=== PATIENT | female | born 1940 | race Caucasian/White ===

== ENCOUNTER → 2018-01-03 | Outpatient (CLI) | payer MEDICARE ==
[~2018-01-03] MED LIST: CONTRAST GIVEN. MC
[2018-01-03 09:12] LABS: GFR 48.4
[2018-01-03 09:12] LABS: CREATININE 1.1 mg/dL (0.6-1.0)
[2018-01-03] MEDS: IOHEXOL 300 MG/ML 100ML VIAL. IV (09:54)
== END | disposition home or self-care (01) ==
LOC: CT 08:30
DX: I71.4 Abdominal aortic aneurysm, without rupture (principal); K42.9 Umbilical hernia without obstruction or gangrene; R31.9 Hematuria, unspecified
CPT/HCPCS: 36415; 74178; 82565; Q9967

== ENCOUNTER → 2018-10-28 | Outpatient (CLI) | payer MEDICARE ==
[2017-05-01 11:00] VITALS: BP 134/41
[~2018-10-28] MED LIST changes: +ALBU2.5V8 IH; +ASPI325T8 PO; +CALC-178 PO; +CARV25TA2 PO; -CONTRAST GIVEN. MC; +CRESTOR40 MG PO; +DOCU-109 PO; +FAMO40TA4 PO; +FLUT1DIS IH; +FURO40TA4 PO; +HYDR-2761 PO; +LEVO50TA5 PO; +LORA10TA3 PO; +POTA10TA11 PO; +POTA20TA84 PO
--- NOTE | 2018-10-28 14:12 | CARD ---
MR#: [id number] Date of Study: 10/28/2018 Ordering Physician: BREANNA GARCIA, Referring Physician: BREANNA GARCIA, Tech: Joslyn Brown [facility] APPROVED REPORT EXAM: Two-dimensional and M-mode echocardiogram with Doppler and color Doppler. Other Information Quality : AverageHR: 68bpm Rhythm : NSR INDICATION CAD 2D DIMENSIONS RVDd3.0 (2.9-3.5cm)Left Atrium(2D)4.2 (1.6-4.0cm) IVSd1.2 (0.7-1.1cm)Aortic Root(2D)2.9 (2.0-3.7cm) LVDd4.7 (3.9-5.9cm)LVOT Diameter2.0 (1.8-2.4cm) PWd0.9 (0.7-1.1cm)LVDs3.4 (2.5-4.0cm) FS (%) 26.9 %SV53.7 ml LVEF(%)52.4 (>50%) Aortic Valve AoV Peak Cedrick.130.7cm/sAoV VTI29.6cm AO Peak GR.6.8mmHgLVOT Peak Cedrick.82.4cm/s AO Mean GR.3mmHgAVA (VMAX)1.89cm2 [place] (VTI)1.90cm2 Mitral Valve MV E Cuyfwfnw719.1cm/sMV DECEL CAQB184sx MV A Junnuxbw11.5cm/sE/A Ratio1.2 MV A [id number] Pulmonary Valve PV Peak Tikooucu18.0cm/s Tricuspid Valve TR P. Sqqnbjil158eg/sRAP PKMQWDGX3kgXm TR Peak Gr.95cmOgRRSW48zkLy LEFT VENTRICLE The left ventricle is normal size. Proximal septal thickening is noted. Left ventricle systolic funct ion is normal. The Ejection Fraction is 50- 55%. There is normal LV segmental wall motion. Transmitra l Doppler flow pattern is Grade II-pseudonormal filling dynamics. RIGHT VENTRICLE The right ventricle is normal size. There is normal right ventricular wall thickness. The right ventr icular systolic function is normal. ATRIA The left atrium is mildly dilated. The right atrium size is normal. The interatrial septum is intact with no evidence for an atrial septal defect or patent foramen ovale as noted on 2-D or Doppler imagi ng. AORTIC VALVE The aortic valve is normal in structure and function. The aortic valve is trileaflet. Doppler and Col or Flow revealed no significant aortic regurgitation. There is no significant aortic valvular stenosi s. MITRAL VALVE The mitral valve is thickened but opens well. There is no evidence of mitral valve prolapse. There is no mitral valve stenosis. Doppler and Color-flow revealed trace to mild mitral regurgitation. TRICUSPID VALVE The tricuspid valve is normal in structure and function. Doppler and Color Flow revealed trace tricus pid regurgitation. The PA pressure was estimated at 41 mmHg. There is no tricuspid valve prolapse or vegetation. There is no tricuspid valve stenosis. PULMONIC VALVE The pulmonic valve is not well visualized. GREAT VESSELS The aortic root is normal in size. The ascending aorta is normal in size. The IVC is normal in size a nd collapses >50% with inspiration. PERICARDIAL EFFUSION There is no evidence of significant pericardial effusion. Critical Notification Critical Value: No <Conclusion> Left ventricle systolic function is normal. The Ejection Fraction is 50- 55%. There is normal LV segmental wall motion. The left atrium is mildly dilated. Trace to mild mitral regurgitation. Trace tricuspid regurgitation. The PA pressure was estimated at 41 mmHg. There is no evidence of significant pericardial effusion. Signed by : Jarrett Matta, Electronically Approved : 10/28/2018 14:11:16
--- NOTE | 2018-10-28 16:33 | RAD ---
MR#: [id number] Date of Study: 10/28/2018 Ordering Physician: BREANNA GARCIA, Referring Physician: BREANNA GARCIA, Tech: Sho Chaudhari, GAVINO, RVT, RTR APPROVED REPORT Patient Location: OUT-PATIENT Laterality:Bilateral Indications Carotid artery disease; History of Left Endarterectomy 1 1/2 years ago Doppler Spectral Velocity Analysis Right Left pCCA 120/24 cm/spCCA 119/20 cm/s mCCA 77/14 cm/smCCA 84/16 cm/s dCCA 109/22 cm/sdCCA 59/17 cm/s Bulb 98/17 cm/sBulb 71/14 cm/s ECA 258/ cm/sECA 113/ cm/s pICA 205/52 cm/spICA 326/50 cm/s Mary 218/36 cm/smICA 197/40 cm/s dICA 115/36 cm/sdICA 105/33 cm/s Vert. 173/ cm/sVert. 50/ cm/s ICA/CCA 1.82ICA/CCA 2.74 Findings Grayscale images of the bilateral common carotid, external and internal carotid vessels reveals signi ficant diffuse athero-'s chronic plaque. On the right there is greater than 50% stenosis on mahan scale images in the common carotid artery. Ve locities are suggestive of 0 to less than 50% stenosis. The right internal carotid artery demonstrate s a greater than 70% stenosis. ICA to CCA ratios are elevated at 2.7. The right external carotid patria ry also has a greater than 50% stenosis by velocity criteria. The left common carotid artery on mahan scale images demonstrates a 50% obstructive lesion. By velocit y criteria there is overall 0 to less than 50% stenosis. The proximal internal carotid artery by [facility] criteria demonstrates greater than 70% stenosis. The ICA to CCA ratios is elevated at 4.2. The bilateral vertebral velocities are antegrade and suggest mild disease. Critical Notification Critical Value: Yes <Conclusion> 1. High-grade bilateral internal carotid artery disease. Significant diffuse atherosclerotic plaque n oted in the carotid arterial system. 2. Consider CT angiogram for further evaluation. Signed by : Jj Krishnan, Electronically Approved : 10/28/2018 16:32:52
== END | disposition home or self-care (01) ==
LOC: US 11:47
PROVIDERS: ATTEND Internal Medicine Cardiovascular Disease
DX: I34.0 Nonrheumatic mitral (valve) insufficiency (principal); I65.23 Occlusion and stenosis of bilateral carotid arteries; I77.9 Disorder of arteries and arterioles, unspecified; I25.5 Ischemic cardiomyopathy; I25.10 Atherosclerotic heart disease of native coronary artery without angina pectoris
CPT/HCPCS: 93306; 93880

== ENCOUNTER 2019-02-07 05:54 | Inpatient (IN) | payer MEDICARE ==
[~2019-02-07] VITALS: Ht 160 cm; Wt 67.7 kg
[~2019-02-07 05:54] MED LIST changes: +CHOL10003 PO
[2019-02-07] MEDS ORDERED: HEPARIN SODIUM 5,000 UNIT in IV RINGERS,LACTATED 500ML 500 ML IRR ONE (06:00)
[2019-02-07] MEDS ORDERED: ROPIVacaine 0.5% PF 20 ML VIAL. ONE (06:59)
[2019-02-07 07:00] LABS: BASO # 0.1 x10^3/uL (0.0-0.2); BASO % 1 % (0-3); EOS # 0.1 x10^3/uL (0.0-0.7); EOS % 1 % (0-3); HEMATOCRIT 39.4 % (36.0-47.0); HEMOGLOBIN 13.4 g/dL (12.0-15.5); LYMPH # 1.7 x10^3/uL (1.0-4.8); LYMPH % 21 % (24-48); MEAN CORPUSCULAR HEMOGLOBIN 31 pg (25-35); MEAN CORPUSCULAR HGB CONC 34 g/dL (31-37); MEAN CORPUSCULAR VOLUME 92 fL (79-100); MONO # 0.6 x10^3/uL (0.0-1.1); MONO % 8 % (0-9); NEUT # 5.3 x10^3/uL (1.8-7.7); NEUT % 69 % (31-73); PLATELET COUNT 178 x10^3/uL (140-400); RED BLOOD COUNT 4.31 x10^6/uL (3.50-5.40); RED CELL DISTRIBUTION WIDTH 13.4 % (11.5-14.5); WHITE BLOOD COUNT 7.8 x10^3/uL (4.0-11.0)
[2019-02-07] MEDS ORDERED: MORPHINE SULFATE 2 MG/ML VIAL. IV PRN ×2 (07:00→08:00)
[2019-02-07] MEDS ORDERED: PROCHLORPERAZINE 10 MG/2 ML VIAL. IV PRN ×2 (07:00→08:00)
[2019-02-07] MEDS ORDERED: fentaNYL PF VIAL 100 MCG/2 ML VIAL IV PRN ×2 (07:00)
[2019-02-07] MEDS ORDERED: IV RINGERS,LACTATED 1000ML 1,000 ML IV SCH (07:00)
[2019-02-07] MEDS ORDERED: ONDANSETRON PF 4 MG/2 ML VIAL. IV PRN ×2 (07:00→08:00)
[2019-02-07] MEDS ORDERED: HYDROmorphone 2 MG/ML VIAL IV PRN (07:00)
[2019-02-07 07:01] LABS: CREATININE 1.1 mg/dL (0.6-1.0); GFR 48.3; POTASSIUM 3.5 mmol/L (3.5-5.1)
[2019-02-07] MEDS ORDERED: LIDOCAINE 1% PF 2 ML VIAL. ONE (07:02)
[2019-02-07] MEDS ORDERED: MIDAZOLAM HCL/PF 2 MG/2 ML VIAL. ONE (07:02)
[2019-02-07] MEDS ORDERED: fentaNYL PF VIAL 100 MCG/2 ML VIAL ONE ×3 (07:06→10:03)
[2019-02-07] MEDS ORDERED: LIDOCAINE 1% 20 ML VIAL. ONE (07:07)
[2019-02-07] MEDS ORDERED: PROTAMINE 50 MG/5 ML VIAL. IV ONE ×2 (07:08→09:17)
[2019-02-07] MEDS ORDERED: SURGICEL FIBRILLAR 1X2 EACH. ONE (07:08)
[2019-02-07] MEDS ORDERED: PHENYLEPHRINE in 0.9% NACL PF 1 MG/10 ML SYRINGE. IV ONE (07:09)
[2019-02-07 07:17] LABS: PROTHROMBIN TIME PATIENT 12.2 SEC (11.7-14.0)
[2019-02-07] MEDS ORDERED: ALBUTEROL SULFATE 2.5 MG/3 ML NEBU. ONE (07:26)
[2019-02-07] MEDS ORDERED: ALBUTEROL SULFATE 2.5 MG/3 ML NEBU. NEB ONE (07:45)
[2019-02-07] MEDS ORDERED: 0.9 % SODIUM CHLORIDE 10 ML DISP.SYRIN. IV PRN (08:00)
[2019-02-07] MEDS ORDERED: HYDROcodone/APAP 5/325MG 1 TAB TABLET PO PRN ×2 (08:00)
[2019-02-07] MEDS ORDERED: hydrALAZINE 20 MG/ML VIAL. IVP PRN (08:00)
[2019-02-07] MEDS: IV RINGERS,LACTATED 1000ML 1,000 ML IV SCH ×2 (08:00→18:00)
[2019-02-07] MEDS ORDERED: LABETALOL 20 MG/4 ML DISP.SYRIN. IVP PRN (08:00)
[2019-02-07] MEDS ORDERED: ACETAMINOPHEN 325 MG TABLET. PO PRN (08:00)
[2019-02-07] MEDS ORDERED: HEPARIN for IV BOLUS 10,000 UNIT/10 ML VIAL. ONE (08:08)
[2019-02-07] MEDS: LEVOTHYROXINE 50 MCG TABLET PO SCH (09:00)
[2019-02-07] MEDS ORDERED: ALBUTEROL SULFATE 2.5 MG/3 ML NEBU. NEB SCH (09:00)
--- NOTE | 2019-02-07 09:38 | PDOC ---
BRIEF OPERATIVE NOTE Date: Feb 07, 2019 Pre-Op Diagnosis Right carotid stenosis Post-Op Diagnosis same Procedure Performed Right carotid endarterectomy Surgeon Dr. Cleary Soldering Technician Gregory Jeffery, DOMINGUEZ Anesthesia Type: Regional Blood Loss 50cc Specimens Obtained discarded Findings greater than 70% stenosis Complications none Operative Note see dictated note GREGORY JEFFERY CPR AMBULANCE DRIVER Feb 07, 2019 09:37
--- NOTE | 2019-02-07 09:39 | DISCH ---
DISCHARGE INSTRUCTIONS Condition on Discharge Condition on Discharge: Stable Activity After Discharge Activity Instructions for Disc: Activity as tolerated Weight Bearing Status after Di: As tolerated Diet after Discharge Diet after Discharge: Cardiac Wound Incision Care Wound/Incision Care: Ice to area for comfort, May get incision wet Other wound/incision instructi: may shower starting 02/09/2019 keep drain site covered with bandaid for 2-3 Contacting the after DC Call your doctor for: Concerns you may have Follow-Up Follow up with: Dr. Cleary 02/23/2019 1015 GREGORY JEFFERY APRN Feb 07, 2019 09:39
--- NOTE | 2019-02-07 10:05 | OP ---
DATE OF SURGERY: 02/07/2019 SURGEON: Darlin Cleary MD MARKETING REPORTING ANALYST: Marzena Noel, nurse practitioner. PREOPERATIVE DIAGNOSIS: Right carotid artery severe, greater than 80% stenosis, which is asymptomatic. POSTOPERATIVE DIAGNOSIS: Severe right internal carotid artery stenosis with greater than 80% stenosis by atherosclerotic disease in the proximal and mid internal carotid artery. OPERATION PERFORMED: Right carotid endarterectomy using the eversion endarterectomy technique. ANESTHESIA USED: Right neck cervical block with monitored sedation. BLOOD LOSS: 50 mL. INDICATIONS: The patient is a 78-year-old female with a history of carotid arterial disease. She is remotely in the past undergone a left carotid endarterectomy. She has been found to have severe, greater than 80% stenosis of the right internal carotid artery by duplex scan and CT angiogram. She has been asymptomatic with no stroke symptoms and no strokes in the recent past. I recommend a right carotid endarterectomy to prevent future strokes. Informed consent was obtained from the patient including the risks of bleeding, infection, intraoperative or postoperative stroke, recurrent carotid arterial disease in the future, requiring further intervention and possible nerve damage. DETAILS OF THE OPERATION: The patient was brought to the operating room and placed on table in supine position. She received a right neck cervical block by the anesthesiologist. Her neck was positioned appropriately by normal fashion to expose the right neck and chest. Her right neck and chest was prepped and draped in normal sterile fashion. We began by pinching the skin along her neck and ensured that there was a good block. She had no pain. I made a longitudinal incision just anterior to the right sternocleidomastoid muscle. I dissected down to the subcutaneous tissue and divided the platysma with electrocautery. We continued dissection down to the sternocleidomastoid muscle. Crossing venous branches were clipped and divided. We dissected out the sternocleidomastoid muscle and mobilized it laterally to expose the internal jugular vein. The jugular vein was dissected out on the medial aspect and there were several small venous branches, which were ligated with 3-0 silk sutures and divided in a more large crossing facial branch proximally, which was ligated with 2-0 silk ties, clips and divided. We were able to mobilize the jugular vein laterally and exposed the common carotid artery and the base of the wound. The common carotid artery was dissected out proximally. We then heparinized with 6000 units of heparin. We were able to dissect out the proximal common carotid artery where it was soft placed an umbilical tape loosely with Rumel tourniquet at this location. We continued dissection up to the carotid bulb. The carotid bulb was fairly high. We dissected out the tissue over the carotid bulb including identifying and preserving the hypoglossal nerve. We were able to dissect out the external carotid artery, placed a vessel loop around it. We then clamped the proximal common carotid artery and external carotid artery. She tolerated test clamping. She was able to squeeze her left hand and answer questions appropriately. We then continued dissection of the internal carotid artery, high up under the hypoglossal nerve. It had plaque within the proximal and mid-section, but the distal section was nice and soft and nondiseased and we placed a straight spring bulldog across the distal internal carotid artery. She continued to remain neurologically intact. We then transected the internal carotid artery in angled fashion at the bulb. We spatulated the medial aspect of the internal carotid artery and the anterior wall of the common carotid artery. There was dense calcification and plaque within the internal carotid artery, which was well over 80% stenotic at the origin and proximal segment. We performed an eversion endarterectomy of the internal carotid artery. This plaque extended through the mid-section of the internal carotid artery all the way up to the more distal location where the plaque was then removed and there was no further significant plaque. All pieces of debris were removed. The end of the endarterectomized area was widely patent. We irrigated with heparinized saline and there was no further plaque. We removed all debris from the artery. We then performed endarterectomy of the common carotid artery. We also performed an eversion endarterectomy of the external carotid artery, which had a long plaque, which were removed nicely and then we performed endarterectomy of the common carotid artery down to just above the clamp, the plaque was transected. There was no significant residual plaque and the lumen was widely patent. We removed all pieces of debris off the endarterectomized vessel. We then performed an anastomosis between the open internal carotid artery and the open common carotid artery with running 6-0 Prolene suture. Prior to finishing this anastomosis, we backbled the internal carotid artery. We backbled the external carotid artery and then we removed the clamp off the common carotid artery and there was pulsatile inflow. We irrigated the open vessel with heparinized saline and finished the anastomosis. We removed the clamp initially off the common carotid artery and external carotid artery. There was bleeding from the anterior wall of the anastomosis just in the proximal segment, which we oversewed with 6-0 Prolene suture. We then after several heartbeats removed the clamp off the internal carotid artery and restored blood flow. She remained neurologically intact, squeezing her left hand and answering questions. We irrigated with copious amounts of saline. We left a MAURA flat drain within the wound through a separate lower neck incision. She did have oozing from several areas within the wound bed. We controlled this with electrocautery and clips. I did give her 20 mg of protamine to reverse some of her anticoagulation. The anastomosis in artery was very dry. She has a strong palpable pulse in the distal internal carotid artery. We ensured good hemostasis, we left fibular around the vessels and the anastomosis. We left the drain within the wound. We closed the platysma and subcutaneous tissue layer with running 2-0 Vicryl suture and closed the skin with running 4-0 Vicryl subcuticular suture. Dermabond was left on the incision and a drain sponge. She was awake at the end of the case, speaking and answering questions. Good strength in all 4 extremities. She tolerated the surgery with no immediate complications. Marzena Bert was scrubbed throughout the entire length of the case. DARLIN CLEARY MD DR: KIKI/katlyn JOB#: [id number] / [id number]
[2019-02-07 11:45] VITALS: BP 160/70
[2019-02-07] MEDS: BUDESONIDE 0.5 MG/2 ML NEBU. NEB SCH ×2 (12:43→19:47)
[2019-02-07] MEDS: CHOLECALCIFEROL (VITAMIN D3) 1,000 UNIT TABLET PO SCH (12:51)
[2019-02-07] MEDS: CETIRIZINE HCL 10 MG TABLET. PO SCH (12:51)
[2019-02-07] MEDS: POTASSIUM CHLORIDE 20 MEQ TABLET.ER. PO SCH (12:51)
[2019-02-07] MEDS: DOCUSATE SODIUM 100 MG CAPSULE. PO SCH ×2 (12:51→21:17)
[2019-02-07] MEDS: CARVEDILOL 12.5 MG TABLET. PO SCH ×2 (12:51→19:02)
[2019-02-07] MEDS: ASPIRIN 325 MG TABLET PO SCH (12:51)
[2019-02-07] MEDS: FUROSEMIDE 40 MG TABLET. PO SCH (12:52)
[2019-02-07] MEDS: ACETAMINOPHEN 325 MG TABLET. PO SCH ×2 (12:52→21:16)
[2019-02-07 15:00] VITALS: BP 107/50
[2019-02-07] MEDS: ALBUTEROL SULFATE 2.5 MG/3 ML NEBU. NEB SCH ×2 (16:01→19:47)
[2019-02-07 19:20] VITALS: BP 107/39
[2019-02-07] MEDS ORDERED: ATORVASTATIN CALCIUM 40 MG TABLET. PO SCH (21:00)
[2019-02-07] MEDS ORDERED: FAMOTIDINE 20 MG TABLET. PO SCH (21:00)
[2019-02-07 23:00] VITALS: BP 109/51
[2019-02-08] MEDS: HYDROcodone/APAP 5/325MG 1 TAB TABLET PO PRN ×2 (02:55→07:50)
[2019-02-08 03:39] VITALS: BP 106/51
[2019-02-08] MEDS: IV RINGERS,LACTATED 1000ML 1,000 ML IV SCH (04:00)
[2019-02-08] MEDS: LEVOTHYROXINE 50 MCG TABLET PO SCH (05:58)
[2019-02-08] MEDS: ACETAMINOPHEN 325 MG TABLET. PO SCH (06:00)
[2019-02-08] MEDS: BUDESONIDE 0.5 MG/2 ML NEBU. NEB SCH (07:03)
[2019-02-08] MEDS: ALBUTEROL SULFATE 2.5 MG/3 ML NEBU. NEB SCH ×2 (07:03→11:00)
[2019-02-08 07:29] VITALS: BP 117/56
--- NOTE | 2019-02-08 07:46 | NUR ---
PT RECEIVED HYDROCODONE WITH ACETAMINOPHEN.
[2019-02-08] MEDS: POTASSIUM CHLORIDE 20 MEQ TABLET.ER. PO SCH (08:00)
--- NOTE | 2019-02-08 08:34 | PDOC ---
Provider Note Provider Note Vascular S: Patient seen and examined in room. Patient complains of right neck incision pain. O: Awake and alert Vital signs stable, afebrile Right neck incision dry and intact, well approximated. Trachea midline. Mild ecchymosis and swelling. Time Analysis Clerk equal, speech is clear. A/P: Right carotid stenosis Postoperative day 1 right carotid endarterectomy, doing well. Patient does have some complaints of discomfort. Recommend patient ambulate in halls. If continues to do well with discharge later today. Discharge instructions given to patient. Follow-up as scheduled with Dr. Cleary. GREGORY JEFFERY APRN Feb 08, 2019 08:34
--- NOTE | 2019-02-08 08:40 | PDOC3 ---
Discharge Summary Date of Admission: Feb 07, 2019 Date of Discharge: Feb 08, 2019 Follow-Up: Other (2 weeks, as scheduled) Admitting Diagnosis comment: Right carotid stenosis Brief Hospital Course Ms. Lozano is a 78 old female who presented with right carotid stenosis. Patient admitted following right carotid endarterectomy. Postoperative day 1 patient progressing as expected, mild complaints of incisional pain. Patient tolerating diet. Able to void without difficulty. Recommend patient ambulate in halls and continues to do well with discharge to home. CONDITION AT DISCHARGE: Stable Discharge Medications Current Medications Ondansetron HCl (Zofran) 4 mg PRN Q6HRS PRN IV NAUSEA/VOMITING; Start 02/07/19 at 07:00; Stop 02/07/19 at 20:00; Status DC Fentanyl Citrate (Fentanyl 2ml Vial) 25 mcg PRN Q5MIN PRN IV MILD PAIN 1-3 Last administered on 02/07/19at 11:01; Start 02/07/19 at 07:00; Stop 02/07/19 at 20:00; Status DC Fentanyl Citrate (Fentanyl 2ml Vial) 50 mcg PRN Q5MIN PRN IV MODERATE TO SEVERE PAIN Last administered on 02/07/19at 10:08; Start 02/07/19 at 07:00; Stop 02/07/19 at 20:00; Status DC Morphine Sulfate (Morphine Sulfate) 1 mg PRN Q10MIN PRN IV SEVERE PAIN 7-10; Start 02/07/19 at 07:00; Stop 02/07/19 at 20:00; Status DC Ringer's Solution 1,000 ml @ 30 mls/hr Q24H IV Last administered on 02/07/19at 06:58; Start 02/07/19 at 07:00; Stop 02/07/19 at 18:59; Status DC Hydromorphone HCl (Dilaudid) 0.5 mg PRN Q10MIN PRN IV SEV PAIN, Second choice; Start 02/07/19 at 07:00; Stop 02/07/19 at 20:00; Status DC Prochlorperazine Edisylate (Compazine) 5 mg PACU PRN PRN IV NAUSEA, MRX1; Start 02/07/19 at 07:00; Stop 02/07/19 at 20:00; Status DC Heparin Sodium (Porcine) 5000 unit/Ringer's Solution 505 ml @ 505 mls/hr 1X ONCE IRR Last administered on 02/07/19at 08:24; Start 02/07/19 at 06:00; Stop 02/07/19 at 06:59; Status DC Cefazolin Sodium 1 gm/Sodium Chloride 500 ml @ 500 mls/hr 1X ONCE IRR Last administered on 02/07/19at 08:24; Start 02/07/19 at 06:00; Stop 02/07/19 at 06:59; Status DC Cefazolin Sodium/ Dextrose 50 ml @ 100 mls/hr 1X ONCE IV ; Start 02/07/19 at 06:00; Stop 02/07/19 at 06:29; Status DC Ropivacaine (Naropin 0.5%) 20 ml STK-MED ONCE .ROUTE ; Start 02/07/19 at 06:59; Stop 02/07/19 at 06:59; Status DC Midazolam HCl (Versed) 2 mg STK-MED ONCE .ROUTE ; Start 02/07/19 at 07:02; Stop 02/07/19 at 07:03; Status DC Lidocaine HCl (Xylocaine-Mpf 1% 2ml Vial) 2 ml STK-MED ONCE .ROUTE ; Start 02/07/19 at 07:02; Stop 02/07/19 at 07:03; Status DC Nicardipine HCl (Cardene) 25 mg STK-MED ONCE IV ; Start 02/07/19 at 07:05; Stop 02/07/19 at 07:06; Status DC Nicardipine HCl (Cardene) 25 mg STK-MED ONCE IV ; Start 02/07/19 at 07:06; Stop 02/07/19 at 07:06; Status DC Fentanyl Citrate (Fentanyl 2ml Vial) 100 mcg STK-MED ONCE .ROUTE ; Start 02/07/19 at 07:06; Stop 02/07/19 at 07:06; Status DC Lidocaine HCl 20 ml STK-MED ONCE .ROUTE Last administered on 02/07/19at 09:34; Start 02/07/19 at 07:07; Stop 02/07/19 at 07:08; Status DC Cellulose (Surgicel Fibrillar 1x2) 1 each STK-MED ONCE .ROUTE Last administered on 02/07/19at 09:14; Start 02/07/19 at 07:08; Stop 02/07/19 at 07:08; Status DC Protamine Sulfate (Protamine) 50 mg STK-MED ONCE IV ; Start 02/07/19 at 07:08; Stop 02/07/19 at 07:08; Status DC Phenylephrine HCl (PHENYLEPHRINE in 0.9% NACL PF) 1 mg STK-MED ONCE IV ; Start 02/07/19 at 07:09; Stop 02/07/19 at 07:09; Status DC Albuterol Sulfate (Ventolin Neb Soln) 2.5 mg STK-MED ONCE .ROUTE ; Start 02/07/19 at 07:26; Stop 02/07/19 at 07:27; Status DC Albuterol Sulfate (Ventolin Neb Soln) 2.5 mg 1X ONCE NEB Last administered on 02/07/19at 12:43; Start 02/07/19 at 07:45; Stop 02/07/19 at 07:46; Status DC Albuterol Sulfate (Ventolin Neb Soln) 2.5 mg BID NEB ; Start 02/07/19 at 09:00; Status Cancel Aspirin (Faraz Aspirin) 325 mg DAILY PO Last administered on 02/07/19at 12:52; Start 02/07/19 at 09:00 Vitamin D (Vitamin D3) 1,000 unit DAILY PO Last administered on 02/07/19 12:52; Start 02/07/19 at 09:00 Docusate Sodium (Colace) 100 mg BID PO Last administered on 02/07/19at 21:19; Start 02/07/19 at 09:00 Furosemide (Lasix) 40 mg DAILY PO Last administered on 02/07/19 12:52; Start 02/07/19 at 09:00 Acetaminophen/ Hydrocodone Bitart (Lortab 5/325) 0.5 tab PRN Q6HRS PRN PO PAIN; Start 02/07/19 at 08:00 Levothyroxine Sodium (Synthroid) 50 mcg DAILY06 PO Last administered on 02/08/19at 05:58; Start 02/07/19 at 09:00 Carvedilol (Coreg) 25 mg BIDWMEALS PO Last administered on 02/07/19at 19:02; Start 02/07/19 at 08:00 Famotidine (Pepcid) 20 mg QHS PO Last administered on 02/07/19at 21:19; Start 02/07/19 at 21:00 Albuterol Sulfate (Ventolin Neb Soln) 2.5 mg RTQID NEB Last administered on 02/08/19at 07:03; Start 02/07/19 at 12:00 Cetirizine HCl (ZyrTEC) 10 mg DAILY PO Last administered on 02/07/19at 12:52; Start 02/07/19 at 09:00 Potassium Chloride (Klor-Con) 20 meq DAILYWBKFT PO Last administered on 02/07/19at 12:52; Start 02/07/19 at 08:00 Atorvastatin Calcium (Lipitor) 80 mg QHS PO Last administered on 02/07/19at 21:19; Start 02/07/19 at 21:00 Labetalol HCl (Normodyne Iv Push) 5 mg PRN Q2HR PRN IVP SBP > 160, 1st CHOICE; Start 02/07/19 at 08:00 Hydralazine HCl (Apresoline Inj) 5 mg PRN Q2HRS PRN IVP SBP > 160, 2nd CHOICE; Start 02/07/19 at 08:00 Sodium Chloride (Normal Saline Flush) 3 ml QSHIFT PRN IV AFTER MEDS AND BLOOD DRAWS; Start 02/07/19 at 08:00 Ringer's Solution 1,000 ml @ 100 mls/hr Q10H IV ; Start 02/07/19 at 08:00 Morphine Sulfate (Morphine Sulfate) 2 mg PRN Q1HR PRN IV PAIN; Start 02/07/19 at 08:00 Acetaminophen/ Hydrocodone Bitart (Lortab 5/325) 1 tab PRN Q4HRS PRN PO MILD PAIN 1-3; Start 02/07/19 at 08:00 Acetaminophen/ Hydrocodone Bitart (Lortab 5/325) 2 tab PRN Q4HRS PRN PO MODERATE PAIN, SEVERE PAIN Last administered on 02/08/19at 07:50; Start 02/07/19 at 08:00 Acetaminophen (Tylenol) 650 mg PRN Q6HRS PRN PO Headaches, Temp > 101.5F; Start 02/07/19 at 08:00 Acetaminophen (Tylenol) 650 mg Q8HRS PO Last administered on 02/07/19at 21:19; Start 02/07/19 at 14:00 Ondansetron HCl (Zofran) 4 mg PRN Q6HRS PRN IV NAUESA, 1ST CHOICE; Start 02/07/19 at 08:00 Prochlorperazine Edisylate (Compazine) 5 mg PRN Q6HRS PRN IV N/V, 2nd Choice, MR X1; Start 02/07/19 at 08:00 Heparin Sodium (Porcine) (Heparin Sodium) 10,000 unit STK-MED ONCE .ROUTE ; Start 02/07/19 at 08:08; Stop 02/07/19 at 08:08; Status DC Budesonide (Pulmicort) 0.5 mg RTBID NEB Last administered on 02/08/19at 07:03; Start 02/07/19 at 12:00 Protamine Sulfate (Protamine) 50 mg STK-MED ONCE IV ; Start 02/07/19 at 09:17; Stop 02/07/19 at 09:18; Status DC Fentanyl Citrate (Fentanyl 2ml Vial) 100 mcg STK-MED ONCE .ROUTE ; Start 02/07/19 at 09:19; Stop 02/07/19 at 09:19; Status DC Fentanyl Citrate (Fentanyl 2ml Vial) 100 mcg STK-MED ONCE .ROUTE ; Start 02/07/19 at 10:03; Stop 02/07/19 at 10:03; Status DC Active Scripts Active Reported Vitamin D3 (Cholecalciferol (Vitamin D3)) 1,000 Unit Tablet 1 Tab PO DAILY Crestor (Rosuvastatin Calcium) 40 Mg Tablet 1 Tab PO QHS Colace (Docusate Sodium) 100 Mg Capsule 1 Cap PO BID K-Tab ER (Potassium Chloride) 20 Meq Tablet.er 20 Meq PO DAILY Carvedilol 25 Mg Tablet 1 Tab PO BID Loratadine 10 Mg Tablet 1 Tab PO DAILY Aspirin 325 Mg Tablet 1 Tab PO DAILY Advair 100-50 Diskus (Fluticasone/Salmeterol) 1 Each Disk.w.dev 1 Puff IH BID Furosemide 40 Mg Tablet 40 Mg PO DAILY Hydrocodone-Apap 5-325 (Hydrocodone Bit/Acetaminophen) 1 Each Tablet 0.5 Tab PO PRN Q6HRS PRN Famotidine 40 Mg Tablet 40 Mg PO BID Levothyroxine Sodium 50 Mcg Tablet 50 Mcg PO DAILY Proair Hfa (Albuterol Sulfate) 8.5 Gm Hfa.aer.ad 1 Puff IH BID Vital Signs Vital Signs Date Time Temp Pulse Resp B/P (MAP) Pulse Ox O2 Delivery O2 Flow Rate FiO2 02/08/19 07:50 98 Nasal Cannula 1.0 02/08/19 07:29 97.9 57 20 117/56 (76) 97.9 Labs Laboratory Tests Test 02/07/19 06:25 White Blood Count 7.8 x10^3/uL (4.0-11.0) Red Blood Count 4.31 x10^6/uL (3.50-5.40) Hemoglobin 13.4 g/dL (12.0-15.5) Hematocrit 39.4 % (36.0-47.0) Mean Corpuscular Volume 92 fL (79-100) Mean Corpuscular Hemoglobin 31 pg (25-35) Mean Corpuscular Hemoglobin Concent 34 g/dL (31-37) Red Cell Distribution Width 13.4 % (11.5-14.5) Platelet Count 178 x10^3/uL (140-400) Neutrophils (%) (Auto) 69 % (31-73) Lymphocytes (%) (Auto) 21 % (24-48) Monocytes (%) (Auto) 8 % (0-9) Eosinophils (%) (Auto) 1 % (0-3) Basophils (%) (Auto) 1 % (0-3) Neutrophils # (Auto) 5.3 x10^3/uL (1.8-7.7) Lymphocytes # (Auto) 1.7 x10^3/uL (1.0-4.8) Monocytes # (Auto) 0.6 x10^3/uL (0.0-1.1) Eosinophils # (Auto) 0.1 x10^3/uL (0.0-0.7) Basophils # (Auto) 0.1 x10^3/uL (0.0-0.2) Prothrombin Time 12.2 SEC (11.7-14.0) Prothromb Time International Ratio 0.9 (0.8-1.1) Sodium Level 141 mmol/L (136-145) Potassium Level 3.5 mmol/L (3.5-5.1) Chloride Level 102 mmol/L (98-107) Carbon Dioxide Level 31 mmol/L (21-32) Anion Gap 8 (6-14) Blood Urea Nitrogen 14 mg/dL (7-20) Creatinine 1.1 mg/dL (0.6-1.0) Estimated GFR (Cockcroft-Gault) 48.3 Glucose Level 126 mg/dL (70-99) Calcium Level 9.0 mg/dL (8.5-10.1) Allergies Allergies Coded Allergies Type Severity Reaction Last Updated Verified No Known Drug Allergies 02/07/19 No Disposition/Orders: D/C to Home Patient Instructions Continue medications per reconciliation, along with pain prescription as needed. Follow up as scheduled. Follow Discharge Instructions as ordered. GRGEORY JEFFERY BURIAL AGENT Feb 08, 2019 08:40
[2019-02-08] MEDS: ASPIRIN 325 MG TABLET PO SCH (09:03)
[2019-02-08] MEDS: DOCUSATE SODIUM 100 MG CAPSULE. PO SCH (09:03)
[2019-02-08] MEDS: FUROSEMIDE 40 MG TABLET. PO SCH (09:03)
[2019-02-08] MEDS: CETIRIZINE HCL 10 MG TABLET. PO SCH (09:03)
[2019-02-08] MEDS: CHOLECALCIFEROL (VITAMIN D3) 1,000 UNIT TABLET PO SCH (09:03)
[2019-02-08] MEDS: CARVEDILOL 12.5 MG TABLET. PO SCH (09:05)
--- NOTE | 2019-02-08 09:12 | NUR ---
SS following for discharge planning. SS reviewed pt chart. Pt is from home. No discharge needs noted at this time. Discharge order on the chart for home with self care.
--- NOTE | 2019-02-08 09:44 | NUR ---
PTS POTASSIUM WOULD NOT SCAN AND SAVE HAD TO MANUALLY ADMINISTER ON COMPUTER.
[2019-02-08 10:36] VITALS: BP 116/56
--- NOTE | 2019-02-08 13:55 | NUR ---
PT LEFT AT APPROX 1230 WITH BROTHER PRESENT AT THE TIME OF DISCHARGE. PT GIVEN SCRIPT TO TAKE HOME WITH FOLLOW UP INSTRUCTIONS, APPT INFORMATION AND AFTERCARE INFORMATION. PT STATES UNDERSTANDING.
== END 2019-02-08 13:30 | disposition home or self-care (01) | DRG 39 ==
LOC: OPSVCIP 05:54 → 2 NORTH 11:22
PROVIDERS: ADMIT Surgery Vascular Surgery; ATTEND Surgery Vascular Surgery
PROC: 03CK0ZZ Extirpation of Matter from Right Internal Carotid Artery, Open Approach (ICD-10-PCS; 2019-02-07)
PROC: 03CM0ZZ Extirpation of Matter from Right External Carotid Artery, Open Approach (ICD-10-PCS; 2019-02-07)
PROC: 03CH0ZZ Extirpation of Matter from Right Common Carotid Artery, Open Approach (ICD-10-PCS; principal; 2019-02-07 07:30)
DX: I65.23 Occlusion and stenosis of bilateral carotid arteries (principal); I25.10 Atherosclerotic heart disease of native coronary artery without angina pectoris; I10 Essential (primary) hypertension; E78.5 Hyperlipidemia, unspecified; I73.9 Peripheral vascular disease, unspecified; Z95.1 Presence of aortocoronary bypass graft; Z79.899 Other long term (current) drug therapy; Z90.49 Acquired absence of other specified parts of digestive tract; Z82.49 Family history of ischemic heart disease and other diseases of the circulatory system; Z90.710 Acquired absence of both cervix and uterus; Z79.82 Long term (current) use of aspirin
CPT/HCPCS: 36415; 80048; 85025; 85610; 94640; 94760; J0690; J0696; J1644; J2250; J2370; J2795; J3010; J7040; J7120; J7613; J7626; G0378

== ENCOUNTER → 2019-11-07 | Outpatient (CLI) | payer MEDICARE ==
--- NOTE | 2019-11-07 12:26 | RAD ---
MR#: [id number] Date of Study: 11/07/2019 Ordering Physician: BREANNA GARCIA, Referring Physician: BREANNA GARCIA, Tech: JOHN Estrada, RDMS, RTR APPROVED REPORT Patient Location: OUT-PATIENT Laterality:Bilateral Indications follow up yearly Doppler Spectral Velocity Analysis Right Left pCCA 120/24 cm/spCCA 53/14 cm/s mCCA 98/23 cm/smCCA 74/18 cm/s dCCA 113/21 cm/sdCCA 77/20 cm/s pICA 92/25 cm/spICA 391/108 cm/s Mary 113/30 cm/smICA 193/39 cm/s dICA 93/36 cm/sdICA 95/26 cm/s Vert. 140/ cm/sVert. 26/ cm/s ICA/CCA 0.94ICA/CCA 7.38 Findings Grayscale images of the right internal carotid artery, external carotid artery and common carotid art robert demonstrate mild luminal irregularities. Spectral waveforms and color Doppler in the internal ca rotid vessels demonstrate 0 to less than 50% stenosis. Probable moderate disease in the external car otid vessels. Antegrade vertebral velocities are noted. Normal ICA to CCA ratios. On the left there is likely a greater than 70% stenosis involving the proximal internal carotid arter y with to and fro flow noted in the left vertebral artery. Elevated ICA to CCA ratios of 5.1 are not ed. Peak systolic velocities in the left internal carotid artery are 391 cm/s. Critical Notification Critical Value: Yes Physician Notified <Conclusion> 1. High-grade stenosis involving the left internal carotid artery. 2. Review of CT angiography performed in 2019 revealed no known prior moderate to high-grade left arrington bclavian and left carotid disease. Signed by : Jj Krishnan, Electronically Approved : 11/07/2019 12:26:21
== END | disposition home or self-care (01) ==
LOC: US 10:39
PROVIDERS: ATTEND Internal Medicine Cardiovascular Disease
DX: I65.22 Occlusion and stenosis of left carotid artery (principal)
CPT/HCPCS: 93880

== ENCOUNTER 2021-06-05 08:49 | Inpatient (IN) | payer MEDICARE ==
[~2021-06-05] VITALS: Ht 160 cm; Wt 70.5 kg
[2021-06-05] MEDS ORDERED: methylPREDNISolone SOD SUCC PF 125 MG/2 ML VIAL. IV ONE (09:00)
--- NOTE | 2021-06-05 09:02 | ED.ADGEN ---
Past Medical History Smoking Status: Former Smoker General Adult EDM: Chief Complaint: SHORTNESS OF BREATH HPI: HPI: Patient is a 81-year-old female who arrives via EMS reporting to shortness of air as well as a cough. Patient states she has been having problems breathing for quite some time however she woke this morning and noticed that she had considerable difficulty with breathing. Patient states she is a former smoker and has never been diagnosed with COPD however she had breathing issues for quite some time which require inhalers at home. Patient states despite this she has not had any chest pain or known fevers. Upon bilingual secretary arrival they did assess the patient and found her to be in the mid 80s on room air. The patient does report to being vaccinated against coronavirus and has not had any known sick contacts. She is awake, alert and in obvious respiratory distress. Review of Systems: Review of Systems: Constitutional: Denies fever or chills. [] Eyes: Denies change in visual acuity. [] HENT: Denies nasal congestion or sore throat. [] Respiratory: Reports cough with shortness of air. [] Cardiovascular: Denies chest pain or edema. [] GI: Denies abdominal pain, nausea, vomiting, bloody stools or diarrhea. [] : Denies dysuria. [] Musculoskeletal: Denies back pain or joint pain. [] Integument: Denies rash. [] Neurologic: Denies headache, focal weakness or sensory changes. [] Endocrine: Denies polyuria or polydipsia. [] Lymphatic: Denies swollen glands. [] Psychiatric: Denies depression or anxiety. [] Current Medications: Current Medications Medications (Trade) Dose Ordered Sig/Viraj Start Time Stop Time Status Last Admin Dose Admin Methylprednisolone Sodium Succinate (SOLU-Medrol 125MG VIAL) 125 mg 1X ONCE 06/05/21 09:00 06/05/21 09:01 DC 06/05/21 09:20 125 MG Ondansetron HCl (Zofran) 4 mg PRN Q8HRS PRN 06/05/21 11:00 06/06/21 10:59 Allergies: Allergies: Allergies Coded Allergies Type Severity Reaction Last Updated Verified No Known Drug Allergies 06/05/21 No Physical Exam: PE: Constitutional: Patient is in obvious respiratory distress. She is otherwise well-nourished and well kept in her appearance. HENT: Normocephalic, atraumatic, bilateral external ears normal, oropharynx moist, no oral exudates, nose normal. [] Eyes: PERRLA, EOMI, conjunctiva normal, no discharge. [] Neck: Normal range of motion, no tenderness, supple, no stridor. [] Cardiovascular:Heart rate regular rhythm, no murmur [] Lungs & Thorax: Mild respiratory distress with diminished bases with expiratory wheezes. [] Abdomen: Bowel sounds normal, soft, no tenderness, no masses, no pulsatile masses. [] Skin: Warm, dry, no erythema, no rash. [] Back: No tenderness, no CVA tenderness. [] Extremities: No tenderness, no cyanosis, no clubbing, ROM intact, no edema. [] Neurologic: Alert and oriented X 3, normal motor function, normal sensory function, no focal deficits noted. [] Psychologic: Affect normal, judgement normal, mood normal. [] Current Patient Data: Labs: Laboratory Tests Test 06/05/21 09:20 06/05/21 09:23 White Blood Count 5.9 x10^3/uL (4.0-11.0) Red Blood Count 5.34 x10^6/uL (3.50-5.40) Hemoglobin 16.9 g/dL (12.0-15.5) H Hematocrit 52.6 % (36.0-47.0) H Mean Corpuscular Volume 99 fL (79-100) Mean Corpuscular Hemoglobin 32 pg (25-35) Mean Corpuscular Hemoglobin Concent 32 g/dL (31-37) Red Cell Distribution Width 15.1 % (11.5-14.5) H Platelet Count 112 x10^3/uL (140-400) L Neutrophils (%) (Auto) 77 % (31-73) H Lymphocytes (%) (Auto) 14 % (24-48) L Monocytes (%) (Auto) 8 % (0-9) Eosinophils (%) (Auto) 1 % (0-3) Basophils (%) (Auto) 1 % (0-3) Neutrophils # (Auto) 4.5 x10^3/uL (1.8-7.7) Lymphocytes # (Auto) 0.8 x10^3/uL (1.0-4.8) L Monocytes # (Auto) 0.5 x10^3/uL (0.0-1.1) Eosinophils # (Auto) 0.0 x10^3/uL (0.0-0.7) Basophils # (Auto) 0.0 x10^3/uL (0.0-0.2) Sodium Level 141 mmol/L (136-145) Potassium Level 3.5 mmol/L (3.5-5.1) Chloride Level 98 mmol/L (98-107) Carbon Dioxide Level 33 mmol/L (21-32) H Anion Gap 10 (6-14) Blood Urea Nitrogen 14 mg/dL (7-20) Creatinine 1.6 mg/dL (0.6-1.0) H Estimated GFR (Cockcroft-Gault) 31.1 BUN/Creatinine Ratio 9 (6-20) Glucose Level 114 mg/dL (70-99) H Calcium Level 8.4 mg/dL (8.5-10.1) L Total Bilirubin 0.7 mg/dL (0.2-1.0) Aspartate Amino Transferase (AST) 32 U/L (15-37) Alanine Aminotransferase (ALT) 29 U/L (14-59) Alkaline Phosphatase 75 U/L (46-116) Troponin I High Sensitivity 27 ng/L (4-50) Total Protein 6.7 g/dL (6.4-8.2) Albumin 3.1 g/dL (3.4-5.0) L Albumin/Globulin Ratio 0.9 (1.0-1.7) L Influenza Type A Antigen Negative (NEGATIVE) Influenza Type B Antigen Negative (NEGATIVE) SARS-CoV-2 Antigen (Rapid) Negative (NEGATIVE) Laboratory Tests 06/05/21 09:20 Laboratory Tests 06/05/21 09:20 Vital Signs: Vital Signs Date Time Temp Pulse Resp B/P (MAP) Pulse Ox O2 Delivery O2 Flow Rate FiO2 06/05/21 10:29 56 21 178/70 (106) 97 Nasal Cannula 3.0 06/05/21 08:58 98.2 98.2 EKG: EKG: [] EKG was obtained at 9:12 AM and reveals a sinus rhythm with a ventricular of 61 bpm. There is nonspecific ST/T wave abnormalities in the anterior lateral leads which may denote ischemia versus left ventricular strain. There does appear to be artifact in the EKG and the tracing is suboptimal. There is no STEMI otherwise. Heart Score: C/O Chest Pain: No Risk Factors: Risk Factors: DM, Current or recent (<one month) smoker, HTN, HLP, family history of CAD, obesity. Risk Scores: Score 0 - 3: 2.5% MACE over next 6 weeks - Discharge Home Score 4 - 6: 20.3% MACE over next 6 weeks - Admit for Clinical Observation Score 7 - 10: 72.7% MACE over next 6 weeks - Early Invasive Strategies Radiology/Procedures: Radiology/Procedures: [][facility] [address] [place] [address] IMAGING REPORT Signed PATIENT: YURI GUTIERREZ ACCOUNT: [id number] : 1940 LOCATION: ER AGE: 81 SEX: F EXAM STATUS: PRE ER ORD. PHYSICIAN: MADELINE ALVARADO DO REASON: soa PROCEDURE: PORTABLE CHEST 1V XR CHEST 1V 06/05/2021 9:22 AM INDICATION: Shortness of air COMPARISON: None available TECHNIQUE: Portable frontal view of the chest is provided. FINDINGS: The cardiomediastinal silhouette is within normal limits. Mild pulmonary vascular congestion.. Median sternotomy changes are present. There are no significant pleural effusions. No pneumothorax. No suspicious osseous abnormality. IMPRESSION: Mild pulmonary vascular congestion as may be seen with congestive heart failure. Electronically signed by: Margaux Garcia MD (06/05/2021 10:34 AM) [id number] DICTATED and SIGNED BY: MARGAUX GARCIA MD DATE: 06/05/21 [id number] Course & Med Decision Making: Course & Med Decision Making Pertinent Labs and Imaging studies reviewed. (See chart for details) [] Dragon Disclaimer: Dragon Disclaimer: This electronic medical record was generated, in whole or in part, using a voice recognition dictation system. Departure Departure Impression: Primary Impression: COPD (chronic obstructive pulmonary disease) Additional Impressions: Person under investigation for COVID-19 Respiratory failure Disposition: ADMITTED INPATIENT Admitting Physician: HIMS Condition: STABLE Referrals: SUSAN GIRON MD (PCP) Problem Qualifiers MADELINE ALVARADO DO Jun 05, 2021 09:02
--- NOTE | 2021-06-05 09:29 | EKG ---
[facility] [address] [place] [address] Test Date: 2021-06-05 Test Time: 09:12:40 Pat Name: YURI GUTIERREZ Department: Room: Gender: F Optical Assistant: : 1940 Requested By: MADELINE ALVARADO Order Number: [id number] Reading MD: Oj Ramirez Measurements Intervals Stollings Rate: 61 P: 49 ID: [id number] QRS: 58 QRSD: 90 T: 230 QT: 388 QTc: 392 Interpretive Statements SINUS RHYTHM ST & T ABNORMALITY, CONSIDER ANTEROLATERAL ISCHEMIA OR LEFT VENTRICULAR STRAIN INFERIOR ISCHEMIA OR LEFT VENTRICULAR STRAIN ABNORMAL ECG Electronically Signed On 06-06-2021 15:40:48 CORK INSULATOR HELPER by Oj Ramirez
[2021-06-05 09:37] LABS: BASO % 1 % (0-3); EOS % 1 % (0-3); HEMATOCRIT 52.6 % (36.0-47.0); HEMOGLOBIN 16.9 g/dL (12.0-15.5); LYMPH # 0.8 x10^3/uL (1.0-4.8); LYMPH % 14 % (24-48); MEAN CORPUSCULAR HEMOGLOBIN 32 pg (25-35); MEAN CORPUSCULAR HGB CONC 32 g/dL (31-37); MEAN CORPUSCULAR VOLUME 99 fL (79-100); MONO # 0.5 x10^3/uL (0.0-1.1); MONO % 8 % (0-9); NEUT # 4.5 x10^3/uL (1.8-7.7); NEUT % 77 % (31-73); PLATELET COUNT 112 x10^3/uL (140-400); RED BLOOD COUNT 5.34 x10^6/uL (3.50-5.40); RED CELL DISTRIBUTION WIDTH 15.1 % (11.5-14.5); WHITE BLOOD COUNT 5.9 x10^3/uL (4.0-11.0)
[2021-06-05 09:52] LABS: INFLUENZA A PATIENT NEGATIVE (NEGATIVE); INFLUENZA B PATIENT NEGATIVE (NEGATIVE)
[2021-06-05 10:05] LABS: CALCIUM 8.4 mg/dL (8.5-10.1); CREATININE 1.6 mg/dL (0.6-1.0); GFR 31.1; POTASSIUM 3.5 mmol/L (3.5-5.1)
[2021-06-05 10:07] LABS: ALBUMIN 3.1 g/dL (3.4-5.0); ALBUMIN/GLOBULIN RATIO 0.9 (1.0-1.7); TOTAL BILIRUBIN 0.7 mg/dL (0.2-1.0); TOTAL PROTEIN 6.7 g/dL (6.4-8.2)
--- NOTE | 2021-06-05 10:37 | RAD ---
XR CHEST 1V 06/05/2021 9:22 AM INDICATION: Shortness of air COMPARISON: None available TECHNIQUE: Portable frontal view of the chest is provided. FINDINGS: The cardiomediastinal silhouette is within normal limits. Mild pulmonary vascular congestion.. Median sternotomy changes are present. There are no significant pleural effusions. No pneumothorax. No suspicious osseous abnormality. IMPRESSION: Mild pulmonary vascular congestion as may be seen with congestive heart failure. Electronically signed by: Christi Cohen MD (06/05/2021 10:34 AM) [id number]
[2021-06-05] MEDS ORDERED: ONDANSETRON PF 4 MG/2 ML VIAL. IVP PRN (11:00)
--- NOTE | 2021-06-05 13:45 | NUR ---
PATIENT ARRIVED ON THE UNIT PER BED ALERT AND VERBALLY RESPONSIVE, ASSESSMENT COMPLETED AT THIS TIME, COMFPRT MEASURES GIVEN AND CARDIAC DIET ORDERED D/T PATIENT INFORMING THIS PORTER BATH THAT SHE HAD NOT RECEIVED ANY LUNCH AT THIS TIME. VITALS ARE FOLLOWS; 97.6,135/62, 60, 95% ON 2 LITERS N/C.
[2021-06-05 15:00] VITALS: BP 123/53
[2021-06-05] MEDS ORDERED: CYCL5TAB PO (16:08)
[2021-06-05 19:00] VITALS: BP 125/59
[2021-06-05] MEDS ORDERED: LISI5TAB15 PO (20:59)
--- NOTE | 2021-06-05 21:10 | NUR ---
Not documented by day shift Addendum: 06/05/21 at 2111 by LORRIE MINA LPN LPN Amended: Links added.
[2021-06-05] MEDS ORDERED: CYCLOBENZAPRINE 10 MG TABLET. PO PRN (21:15)
[2021-06-05] MEDS: ATORVASTATIN CALCIUM 40 MG TABLET. PO SCH (22:14)
[2021-06-05] MEDS: DOCUSATE SODIUM 100 MG CAPSULE. PO SCH (22:14)
[2021-06-05 23:03] VITALS: BP 129/48
[2021-06-06] MEDS: HYDROcodone/APAP 5/325MG 1 TAB TABLET PO PRN ×2 (02:45→21:17)
[2021-06-06 03:08] VITALS: BP 131/51
[2021-06-06] MEDS: LEVOTHYROXINE 50 MCG TABLET PO SCH (05:56)
[2021-06-06 07:00] VITALS: BP 127/62
[2021-06-06] MEDS: predniSONE 20 MG TABLET PO SCH (09:53)
[2021-06-06] MEDS: FUROSEMIDE 40 MG TABLET. PO SCH (09:53)
[2021-06-06] MEDS: POTASSIUM CHLORIDE 20 MEQ TABLET.ER. PO SCH (09:53)
[2021-06-06] MEDS: ASPIRIN 325 MG TABLET PO SCH (09:53)
[2021-06-06] MEDS: DOCUSATE SODIUM 100 MG CAPSULE. PO SCH ×2 (09:54→21:16)
[2021-06-06] MEDS: CARVEDILOL 12.5 MG TABLET. PO SCH ×2 (09:54→17:49)
[2021-06-06] MEDS: LISINOPRIL 5 MG TABLET. PO SCH (09:54)
[2021-06-06] MEDS: FAMOTIDINE 20 MG TABLET. PO SCH (09:54)
[2021-06-06] MEDS: ALBUTEROL SULFATE 8GM INHALER. INH SCH ×2 (09:55→20:00)
[2021-06-06] MEDS: FLUTICASONE/VILANTEROL 100/25 INHALER. INH SCH (09:55)
--- NOTE | 2021-06-06 09:56 | PDOC1 ---
History and Physical Date of Service: DOS: DATE: 06/06/21 TIME: 09:56 Chief Complaint: Chief Complain: SOB History of Present Illness: HPI: Patient is a 81-year-old female who arrived overnight EMS reporting shortness of air as well as a cough. Patient states she has been having problems breathing for quite some time however she woke yesterday morning and noticed that she had considerable difficulty with breathing. Patient states she is a former smoker and has never been diagnosed with COPD however she had breathing issues for quite some time which require inhalers at home. Patient states despite this she has not had any chest pain or known fevers. Upon radiographer angiogram arrival they did assess the patient and found her to be in the mid 80s on room air. The patient does report to being vaccinated against coronavirus and has not had any known sick contacts. She is awake, alert and in obvious respiratory distress. Past Medical/Surgical History: PMH/PSH: HPLD, Hypothyroid Allergies: Allergies: Coded Allergies: No Known Drug Allergies (Unverified , 06/05/21) Family History: Family History: Hypertension Social History: Social History: Former smoker Current Medications: Current Medications Current Medications Methylprednisolone Sodium Succinate (SOLU-Medrol 125MG VIAL) 125 mg 1X ONCE IV Last administered on 06/05/21at 09:20; Start 06/05/21 at 09:00; Stop 06/05/21 at 09:01; Status DC Ondansetron HCl (Zofran) 4 mg PRN Q8HRS PRN IVP NAUSEA/VOMITING; Start at 11:00; Stop 06/06/21 at 10:59 Albuterol Sulfate (Ventolin Hfa) 2 puff RTBID INH ; Start 06/06/21 at 08:00 Aspirin (Faraz Aspirin) 325 mg DAILY PO ; Start 06/06/21 at 09:00 Docusate Sodium (Colace) 100 mg BID PO Last administered on 06/05/21at 22:14; Start 06/05/21 at 21:00 Furosemide (Lasix) 40 mg DAILY PO ; Start 06/06/21 at 09:00 Acetaminophen/ Hydrocodone Bitart (Lortab 5/325) 0.5 tab PRN Q6HRS PRN PO MODERATE PAIN 4-6 Last administered on 06/06/21at 02:45; Start 06/05/21 at 21:00 Levothyroxine Sodium (Synthroid) 50 mcg DAILY06 PO Last administered on 06/06/21at 05:56; Start 06/06/21 at 06:00 Lisinopril (Prinivil) 5 mg DAILY PO ; Start 06/06/21 at 09:00 Carvedilol (Coreg) 12.5 mg BIDWMEALS PO ; Start 06/06/21 at 08:00 Cyclobenzaprine HCl (Flexeril) 5 mg PRN TID PRN PO MUSCLE SPASMS; Start 06/05/21 at 21:15 Famotidine (Pepcid) 20 mg DAILY PO ; Start 06/06/21 at 09:00 Fluticasone/ Vilanterol (Breo Ellipta 100-25 Mcg) 1 puff DAILY INH ; Start 06/06/21 at 09:00 Potassium Chloride (Klor-Con) 20 meq DAILYWBKFT PO ; Start 06/06/21 at 08:00 Atorvastatin Calcium (Lipitor) 80 mg QHS PO Last administered on 06/05/21at 22:14; Start 06/05/21 at 22:00 Active Scripts Active Reported Lisinopril 5 Mg Tablet 5 Mg PO DAILY Cyclobenzaprine Hcl 5 Mg Tablet 5 Mg PO TID PRN Vitamin D3 (Cholecalciferol (Vitamin D3)) 1,000 Unit Tablet 1 Tab PO DAILY Crestor (Rosuvastatin Calcium) 40 Mg Tablet 1 Tab PO QHS Colace (Docusate Sodium) 100 Mg Capsule 1 Cap PO BID K-Tab ER (Potassium Chloride) 20 Meq Tablet.er 20 Meq PO DAILY Carvedilol 25 Mg Tablet 12.5 Mg PO BID Loratadine 10 Mg Tablet 1 Tab PO DAILY Aspirin 325 Mg Tablet 1 Tab PO DAILY Advair 100-50 Diskus (Fluticasone/Salmeterol) 1 Each Disk.w.dev 1 Puff IH BID Furosemide 40 Mg Tablet 40 Mg PO DAILY Hydrocodone-Apap 5-325 (Hydrocodone Bit/Acetaminophen) 1 Each Tablet 0.5 Tab PO PRN Q6HRS PRN Famotidine 40 Mg Tablet 40 Mg PO DAILY Levothyroxine Sodium 50 Mcg Tablet 50 Mcg PO DAILY Proair Hfa (Albuterol Sulfate) 8.5 Gm Hfa.aer.ad 1 Puff IH BID ROS: Review of Systems Review of System Unless noted in HPI 14 point review systems was negative Physical Exam: Vital Signs: Vital Signs Date Time Temp Pulse Resp B/P (MAP) Pulse Ox O2 Delivery O2 Flow Rate FiO2 06/06/21 07:00 98.1 64 18 127/62 (83) 95 Nasal Cannula 2.0 98.1 Physcial Exam: GEN: No apparent distress. Alert and oriented HEENT: Normal cephalic, atraumatic, external auditory canals are patent EYES: Extraocular muscles are intact, pupil are equally round and reactive to light and accommodation MUSCULOSKELETAL: Well developed , well nourished, good range of motion ENDOCRINE: No thyromegaly was palpated LYMPHATICS: No cervical chain or axillary nodes were noted HEMATOPOIETIC: No bruising NECK: Supple, no JVD, no thyromegaly was noted LUNGS: Coarse breath sounds throughout, decreased air entry HEART: RRR, S!, S2 present. Peripheral pulses intact, no obvious murmurs noted ABDOMEN: Soft, nontender. Positive bowel sounds, no organomegaly, normal bowel sounds EXTREMITIES: Without clubbing, cyanosis, or edema. Pedal pulses intact. Negative Homans sign NEUROLOGIC: Normal speech and tone. A&O x 3, moves all extremities, no obvious focal deficits PSYCHIATRIC: Normal affect, normal mood. Stable SKIN: No ulcerations or rashes, good skin turgor, no jaundice VASCULAR: Good capillary refill, neurovascular bundle appears to be intact Labs: Labs: Laboratory Tests Test 06/05/21 09:20 06/05/21 09:23 White Blood Count 5.9 x10^3/uL (4.0-11.0) Red Blood Count 5.34 x10^6/uL (3.50-5.40) Hemoglobin 16.9 g/dL (12.0-15.5) Hematocrit 52.6 % (36.0-47.0) Mean Corpuscular Volume 99 fL (79-100) Mean Corpuscular Hemoglobin 32 pg (25-35) Mean Corpuscular Hemoglobin Concent 32 g/dL (31-37) Red Cell Distribution Width 15.1 % (11.5-14.5) Platelet Count 112 x10^3/uL (140-400) Neutrophils (%) (Auto) 77 % (31-73) Lymphocytes (%) (Auto) 14 % (24-48) Monocytes (%) (Auto) 8 % (0-9) Eosinophils (%) (Auto) 1 % (0-3) Basophils (%) (Auto) 1 % (0-3) Neutrophils # (Auto) 4.5 x10^3/uL (1.8-7.7) Lymphocytes # (Auto) 0.8 x10^3/uL (1.0-4.8) Monocytes # (Auto) 0.5 x10^3/uL (0.0-1.1) Eosinophils # (Auto) 0.0 x10^3/uL (0.0-0.7) Basophils # (Auto) 0.0 x10^3/uL (0.0-0.2) Sodium Level 141 mmol/L (136-145) Potassium Level 3.5 mmol/L (3.5-5.1) Chloride Level 98 mmol/L (98-107) Carbon Dioxide Level 33 mmol/L (21-32) Anion Gap 10 (6-14) Blood Urea Nitrogen 14 mg/dL (7-20) Creatinine 1.6 mg/dL (0.6-1.0) Estimated GFR (Cockcroft-Gault) 31.1 BUN/Creatinine Ratio 9 (6-20) Glucose Level 114 mg/dL (70-99) Calcium Level 8.4 mg/dL (8.5-10.1) Total Bilirubin 0.7 mg/dL (0.2-1.0) Aspartate Amino Transf (AST/SGOT) 32 U/L (15-37) Alanine Aminotransferase (ALT/SGPT) 29 U/L (14-59) Alkaline Phosphatase 75 U/L (46-116) Troponin I High Sensitivity 27 ng/L (4-50) Total Protein 6.7 g/dL (6.4-8.2) Albumin 3.1 g/dL (3.4-5.0) Albumin/Globulin Ratio 0.9 (1.0-1.7) Influenza Type A Antigen Negative (NEGATIVE) Influenza Type B Antigen Negative (NEGATIVE) SARS-CoV-2 RNA (ALICIA) Negative (Negative) SARS-CoV-2 Antigen (Rapid) Negative (NEGATIVE) Assessment/Plan Assessment/Plan Shortness of breath secondary to fluid overload versus COPD exacerbation -Patient presenting with worsening shortness of breath for several months -Former smoker. Has been Covid vaccinated chest x-ray shows possible pulmonary congestion -Admit resume home meds as indicated -We will give extra Lasix one-time a little fluid overloaded on exam -We will give prednisone and breathing treatments for COPD exacerbation -Regular diet -DVT prophylaxis -Wean O2 as tolerated -18 minutes advanced care discussion with patient at bedside. Justifications for Admission Other Justification CORINE FISHMAN MD Jun 06, 2021 09:56
[2021-06-06 11:00] VITALS: BP 121/55
--- NOTE | 2021-06-06 11:04 | NUR ---
SW following. Discussed with RN, pt from home at [facility], 2L (does not use oxygen at home), cardiac diet. Flu and COVID-19 negative. RN advised no SW needs at this time. SW will continue to follow.
[2021-06-06] MEDS ORDERED: FUROSEMIDE 40 MG/4 ML VIAL. IVP ONE (13:00)
--- NOTE | 2021-06-06 13:34 | PDOC ---
[employer] PROGRESS NOTE Date of Service DOS: DATE: 06/06/21 TIME: 13:33 Chief Complaint Chief Complaint Shortness of breath secondary to fluid overload versus COPD exacerbation -Patient presenting with worsening shortness of breath for several months -Former smoker. Has been Covid vaccinated chest x-ray shows possible pulmonary congestion -Admit resume home meds as indicated -We will give extra Lasix one-time a little fluid overloaded on exam -We will give prednisone and breathing treatments for COPD exacerbation -Regular diet -DVT prophylaxis -Wean O2 as tolerated -18 minutes advanced care discussion with patient at bedside History of Present Illness History of Present Illness Patient is a 81-year-old female who arrived overnight EMS reporting shortness of air as well as a cough. Patient states she has been having problems breathing for quite some time however she woke yesterday morning and noticed that she had considerable difficulty with breathing. Patient states she is a former smoker and has never been diagnosed with COPD however she had breathing issues for quite some time which require inhalers at home. Patient states despite this she has not had any chest pain or known fevers. Upon piece cutter arrival they did assess the patient and found her to be in the mid 80s on room air. The patient does report to being vaccinated against coronavirus and has not had any known sick contacts. She is awake, alert and in obvious respiratory distress. 06/06 Evaluate examined at bedside. Resting in bed. Continue antibiotics steroids. Vitals/I&O Vitals/I&O: Vital Signs Date Time Temp Pulse Resp B/P (MAP) Pulse Ox O2 Delivery O2 Flow Rate FiO2 06/06/21 11:00 97.7 57 18 121/55 (77) 91 Nasal Cannula 2.0 97.7 I & O 06/05/21 06/05/21 06/06/21 15:00 23:00 07:00 Intake Total 120 ml 0 ml Balance 120 ml 0 ml Physical Exam General: Alert, Oriented X3, Cooperative Heart: Regular rate, Normal S1, Normal S2 Lungs: Clear Abdomen: Normal bowel sounds, Soft, No tenderness Extremities: No edema, Normal pulses Skin: No significant lesion Comment Review of Relevant I have reviewed the following items paul (where applicable) has been applied. Medications: Current Medications Medications (Trade) Dose Ordered Sig/Viraj Route PRN Reason Start Time Stop Time Status Last Admin Dose Admin Albuterol Sulfate (Ventolin Hfa) 2 puff RTBID INH 06/06/21 08:00 06/06/21 09:55 Aspirin (Faraz Aspirin) 325 mg DAILY PO 06/06/21 09:00 06/06/21 09:53 Docusate Sodium (Colace) 100 mg BID PO 06/05/21 21:00 06/06/21 09:54 Furosemide (Lasix) 40 mg DAILY PO 06/06/21 09:00 06/06/21 09:53 Acetaminophen/ Hydrocodone Bitart (Lortab 5/325) 0.5 tab PRN Q6HRS PRN PO MODERATE PAIN 4-6 06/05/21 21:00 06/06/21 02:45 Levothyroxine Sodium (Synthroid) 50 mcg DAILY06 PO 06/06/21 06:00 06/06/21 05:56 Lisinopril (Prinivil) 5 mg DAILY PO 06/06/21 09:00 06/06/21 09:54 Carvedilol (Coreg) 12.5 mg BIDWMEALS PO 06/06/21 08:00 06/06/21 09:54 Famotidine (Pepcid) 20 mg DAILY PO 06/06/21 09:00 06/06/21 09:54 Fluticasone/ Vilanterol (Breo Ellipta 100-25 Mcg) 1 puff DAILY INH 06/06/21 09:00 06/06/21 09:55 Potassium Chloride (Klor-Con) 20 meq DAILYWBKFT PO 06/06/21 08:00 06/06/21 09:53 Atorvastatin Calcium (Lipitor) 80 mg QHS PO 06/05/21 22:00 06/05/21 22:14 Prednisone (Prednisone) 40 mg DAILY PO 06/06/21 09:45 06/06/21 09:53 Justifications for Admission Other Justification CORINE FISHMAN MD Jun 06, 2021 13:34
--- NOTE | 2021-06-06 13:56 | HP ---
DATE OF SERVICE: 06/06/2021 ADMIT DATE: 06/05/2021 CHIEF COMPLAINT: Shortness of breath and cough. HISTORY OF PRESENT ILLNESS: The patient is a pleasant 81-year-old female who has COPD (she is trying to quit smoking). Basically, she presented with cough and shortness of breath. We did some imaging. She has some vascular congestion and clinically seems to have a COPD exacerbation as well. I discussed the case with the ER physician. We are going to admit the patient and give her IV antibiotics, breathing treatments, oxygen, steroids. PAST MEDICAL HISTORY: Continued tobacco abuse, probable COPD, polypharmacy, allergic rhinitis, muscle spasms, hyperlipidemia, CHF, hypertension, chronic pain, arthritis, GERD, constipation, hypothyroidism. ALLERGIES: None. FAMILY HISTORY: COPD. REVIEW OF SYSTEMS: GENERAL: No history of weight change, weakness or fevers. SKIN: No bruising, hair changes or rashes. EYES: No blurred, double or loss of vision. NOSE AND THROAT: No history of nosebleeds, hoarseness or sore throat. HEART: No history of palpitations, chest pain or shortness of breath on exertion. LUNGS: She complains of shortness of breath and cough. GASTROINTESTINAL: Denies changes in appetite, nausea, vomiting, diarrhea or constipation. GENITOURINARY: No history of frequency, urgency, hesitancy or nocturia. NEUROLOGIC: Denies history of numbness, tingling, tremor or weakness. PSYCHIATRIC: No history of panic, anxiety or depression. ENDOCRINE: No history of heat or cold intolerance, polyuria or polydipsia. EXTREMITIES: Denies muscle weakness, joint pain, pain on walking or stiffness. PHYSICAL EXAMINATION: VITALS: Within normal limits and are stable. GENERAL: No apparent distress. Alert and oriented. HEENT: Normal cephalic atraumatic, external auditory canals are patent. Eyes: Extraocular muscles are intact, pupils are equally round and reactive to light and accommodation. MUSCULOSKELETAL: Well developed, well nourished, good range of motion. ENDOCRINE: No thyromegaly was palpated. LYMPHATICS: No cervical chain or axillary nodes were noted. HEMATOPOIETIC: No bruising. NECK: Supple, no JVD, no thyromegaly was noted. LUNGS: She has decreased breath sounds and cough. HEART: RRR, S1, S2 present. Peripheral pulses intact, no obvious murmurs were noted. ABDOMEN: Soft, nontender. Positive bowel sounds, no organomegaly, normal bowel sounds. EXTREMITIES: Without any cyanosis, clubbing, or edema. Pedal pulses intact, Homans sign is negative. NEUROLOGIC: Normal speech, normal tone. A and O x 3, moves all extremities, no obvious focal deficits. PSYCHIATRIC: Normal affect, normal mood. Stable. SKIN: No ulcerations or rashes, good skin turgor, no jaundice. VASCULAR: Good capillary refill, neurovascular bundle appears to be intact. LABORATORY DATA: Chest x-ray shows some vascular congestion. White count is 5.9, hemoglobin 16.9, platelets 112. Electrolytes are normal. Creatinine is a little high at 1.6. COVID testing is negative. Flu testing is negative. ASSESSMENT AND PLAN: Respiratory failure, probably secondary to chronic obstructive pulmonary disease and heart failure (acute on chronic systolic and diastolic heart failure). The patient has been admitted to monitored floor. We used IV steroids, breathing treatments, oxygen, IV antibiotics, IV Lasix. Home meds. Deep venous thrombosis prophylaxis. Full code. Encourage p.o. intake. Trend labs. She might need usp. VAL/CONCHITA DR: VAL/katlyn TID: [id number]
[2021-06-06 15:00] VITALS: BP 110/47
[2021-06-06 19:00] VITALS: BP 110/39
[2021-06-06] MEDS: ATORVASTATIN CALCIUM 40 MG TABLET. PO SCH (21:16)
[2021-06-06 23:00] VITALS: BP 113/34
[2021-06-07 03:03] VITALS: BP 89/41
[2021-06-07] MEDS: LEVOTHYROXINE 50 MCG TABLET PO SCH (05:50)
[2021-06-07 07:00] VITALS: BP 105/44
[2021-06-07] MEDS: ALBUTEROL SULFATE 8GM INHALER. INH SCH ×2 (08:00→21:24)
[2021-06-07] MEDS: ASPIRIN 325 MG TABLET PO SCH (08:50)
[2021-06-07] MEDS: FAMOTIDINE 20 MG TABLET. PO SCH (08:51)
[2021-06-07] MEDS: FUROSEMIDE 40 MG TABLET. PO SCH (08:51)
[2021-06-07] MEDS: POTASSIUM CHLORIDE 20 MEQ TABLET.ER. PO SCH (08:51)
[2021-06-07] MEDS: DOCUSATE SODIUM 100 MG CAPSULE. PO SCH ×2 (08:51→21:22)
[2021-06-07] MEDS: predniSONE 20 MG TABLET PO SCH (08:53)
[2021-06-07] MEDS: LISINOPRIL 5 MG TABLET. PO SCH (08:53)
[2021-06-07] MEDS: CARVEDILOL 12.5 MG TABLET. PO SCH ×2 (08:53→17:55)
[2021-06-07] MEDS: FLUTICASONE/VILANTEROL 100/25 INHALER. INH SCH (08:54)
[2021-06-07 11:00] VITALS: BP 123/46
--- NOTE | 2021-06-07 12:39 | PDOC ---
[facility] PROGRESS NOTE Date of Service DOS: DATE: 06/07/21 TIME: 12:39 Chief Complaint Chief Complaint Shortness of breath secondary to fluid overload versus COPD exacerbation -Patient presenting with worsening shortness of breath for several months -Former smoker. Has been Covid vaccinated chest x-ray shows possible pulmonary congestion -Admit resume home meds as indicated -We will give extra Lasix one-time a little fluid overloaded on exam -We will give prednisone and breathing treatments for COPD exacerbation -Regular diet -DVT prophylaxis -Wean O2 as tolerated -18 minutes advanced care discussion with patient at bedside History of Present Illness History of Present Illness Patient is a 81-year-old female who arrived overnight EMS reporting shortness of air as well as a cough. Patient states she has been having problems breathing for quite some time however she woke yesterday morning and noticed that she had considerable difficulty with breathing. Patient states she is a former smoker and has never been diagnosed with COPD however she had breathing issues for quite some time which require inhalers at home. Patient states despite this she has not had any chest pain or known fevers. Upon fire lieutenant arrival they did assess the patient and found her to be in the mid 80s on room air. The patient does report to being vaccinated against coronavirus and has not had any known sick contacts. She is awake, alert and in obvious respiratory distress. 06/06 Evaluate examined at bedside. Resting in bed. Continue antibiotics steroids. 06/07 Patient evaluated examined at bedside. She was up in her chair eating lunch. Says breathing continues to improve. We will plan 6-minute walk for tomorrow morning and possible discharge after. Vitals/I&O Vitals/I&O: Vital Signs Date Time Temp Pulse Resp B/P (MAP) Pulse Ox O2 Delivery O2 Flow Rate FiO2 06/07/21 11:00 97.5 55 20 123/46 (71) 96 Nasal Cannula 97.5 06/07/21 08:00 3.0 I & O 06/06/21 06/06/21 06/07/21 15:00 23:00 07:00 Intake Total 120 ml Balance 120 ml Physical Exam General: Alert, Oriented X3, Cooperative Heart: Regular rate, Normal S1, Normal S2 Lungs: Clear Abdomen: Normal bowel sounds, Soft, No tenderness Extremities: No edema, Normal pulses Skin: No significant lesion Comment Review of Relevant I have reviewed the following items paul (where applicable) has been applied. Medications: Current Medications Medications (Trade) Dose Ordered Sig/Viraj Route PRN Reason Start Time Stop Time Status Last Admin Dose Admin Furosemide (Lasix) 40 mg 1X ONCE IVP 06/06/21 13:00 06/06/21 13:01 DC 06/06/21 14:07 Justifications for Admission Other Justification CORINE FISHMAN MD Jun 07, 2021 12:39
[2021-06-07 15:00] VITALS: BP 116/50
[2021-06-07 19:00] VITALS: BP_SYST 106
[2021-06-07] MEDS: ATORVASTATIN CALCIUM 40 MG TABLET. PO SCH (21:22)
[2021-06-07 23:04] VITALS: BP 103/43
[2021-06-08 03:08] VITALS: BP 118/43
[2021-06-08] MEDS: LEVOTHYROXINE 50 MCG TABLET PO SCH (05:24)
[2021-06-08 07:00] VITALS: BP 101/51
[2021-06-08] MEDS: ALBUTEROL SULFATE 8GM INHALER. INH SCH (08:00)
[2021-06-08] MEDS: POTASSIUM CHLORIDE 20 MEQ TABLET.ER. PO SCH (08:36)
[2021-06-08] MEDS: DOCUSATE SODIUM 100 MG CAPSULE. PO SCH (08:36)
[2021-06-08] MEDS: CARVEDILOL 12.5 MG TABLET. PO SCH ×2 (08:36→17:02)
[2021-06-08] MEDS: FUROSEMIDE 40 MG TABLET. PO SCH (08:37)
[2021-06-08] MEDS: ASPIRIN 325 MG TABLET PO SCH (08:37)
[2021-06-08] MEDS: predniSONE 20 MG TABLET PO SCH (08:37)
[2021-06-08] MEDS: FLUTICASONE/VILANTEROL 100/25 INHALER. INH SCH (08:37)
[2021-06-08] MEDS: LISINOPRIL 5 MG TABLET. PO SCH (08:37)
[2021-06-08] MEDS: FAMOTIDINE 20 MG TABLET. PO SCH (08:37)
[2021-06-08 11:00] VITALS: BP 105/67
--- NOTE | 2021-06-08 11:34 | PDOC ---
[employer] PROGRESS NOTE Date of Service DOS: DATE: 06/08/21 TIME: 11:33 Chief Complaint Chief Complaint Shortness of breath secondary to fluid overload versus COPD exacerbation -Patient presenting with worsening shortness of breath for several months -Former smoker. Has been Covid vaccinated chest x-ray shows possible pulmonary congestion -Admit resume home meds as indicated -We will give extra Lasix one-time a little fluid overloaded on exam -We will give prednisone and breathing treatments for COPD exacerbation -Regular diet -DVT prophylaxis -Wean O2 as tolerated -18 minutes advanced care discussion with patient at bedside History of Present Illness History of Present Illness Patient is a 81-year-old female who arrived overnight EMS reporting shortness of air as well as a cough. Patient states she has been having problems breathing for quite some time however she woke yesterday morning and noticed that she had considerable difficulty with breathing. Patient states she is a former smoker and has never been diagnosed with COPD however she had breathing issues for quite some time which require inhalers at home. Patient states despite this she has not had any chest pain or known fevers. Upon conference planner arrival they did assess the patient and found her to be in the mid 80s on room air. The patient does report to being vaccinated against coronavirus and has not had any known sick contacts. She is awake, alert and in obvious respiratory distress. 06/06 Evaluate examined at bedside. Resting in bed. Continue antibiotics steroids. 06/07 Patient evaluated examined at bedside. She was up in her chair eating lunch. Says breathing continues to improve. We will plan 6-minute walk for tomorrow morning and possible discharge after. 06/08 Patient evaluated examined at bedside. Resting in bed doing well no complaints 6-minute walk today if does okay will discharge. Vitals/I&O Vitals/I&O: Vital Signs Date Time Temp Pulse Resp B/P (MAP) Pulse Ox O2 Delivery O2 Flow Rate FiO2 06/08/21 08:37 62 101/51 06/08/21 08:00 Nasal Cannula 2.0 06/08/21 07:00 97.9 20 92 97.9 I & O 06/07/21 06/07/21 06/08/21 15:00 23:00 07:00 Intake Total 240 ml Output Total 0 ml Balance 240 ml 0 ml Physical Exam General: Alert, Oriented X3, Cooperative Heart: Regular rate, Normal S1, Normal S2 Lungs: Clear Abdomen: Normal bowel sounds, Soft, No tenderness Extremities: No edema, Normal pulses Skin: No significant lesion Comment Review of Relevant I have reviewed the following items paul (where applicable) has been applied. Justifications for Admission Other Justification CORINE FISHMAN MD Jun 08, 2021 11:34
[2021-06-08 15:00] VITALS: BP 107/53
[2021-06-08] MEDS ORDERED: PRED20TA PO (16:27)
[2021-06-08 17:02] VITALS: BP 107/53
--- NOTE | 2021-06-08 18:00 | NUR ---
Discharge Note: YURI GUTIERREZ Discharge instructions and discharge home medications reviewed with Patient and a copy given. All questions have been answered and understanding verbalized. The following instructions and handouts were given: f/u with pcp within two weeks. Call [facility] when you get home to set up your oxygen. Discontinued lines and drains: Peripheral IV intact. Patient discharged to Home or Self Care with Family Member via Wheelchair.
== END 2021-06-08 18:00 | disposition home or self-care (01) | DRG 291 ==
LOC: ER 08:49 → 5 NORTH 11:56
PROVIDERS: ADMIT Internal Medicine; ATTEND Internal Medicine
DX: I11.0 Hypertensive heart disease with heart failure (principal); I50.43 Acute on chronic combined systolic (congestive) and diastolic (congestive) heart failure; J96.02 Acute respiratory failure with hypercapnia; J44.1 Chronic obstructive pulmonary disease with (acute) exacerbation; E03.9 Hypothyroidism, unspecified; E78.5 Hyperlipidemia, unspecified; F17.200 Nicotine dependence, unspecified, uncomplicated; Z20.822 Contact with and (suspected) exposure to COVID-19; Z82.49 Family history of ischemic heart disease and other diseases of the circulatory system; Z82.5 Family history of asthma and other chronic lower respiratory diseases; G89.29 Other chronic pain; K21.9 Gastro-esophageal reflux disease without esophagitis; M19.90 Unspecified osteoarthritis, unspecified site
CPT/HCPCS: 36415; 71045; 80053; 84484; 85025; 87426; 87804; 93005; 94618; 96374; J1940; J2930; J7512; U0003; U0005; 97116-GP; 97530-GP; 97535-GO; 99285-25; G0378